=== PATIENT | female | born 1975 | race Asian ===

== ENCOUNTER 2017-10-29 05:45 | Inpatient (IN) | payer OTHER ==
[~2017-10-29] VITALS: Ht 152.4 cm; Wt 48.1 kg
[~2017-10-29 05:45] MED LIST: PREN1TAB49 PO
[2017-10-29] MEDS ORDERED: NORE0.3513 PO (06:39)
[2017-10-29] MEDS ORDERED: KETOROLAC TROMETHAMINE 30 MG VIAL IVP PRN ×2 (08:15→10:15)
[2017-10-29] MEDS ORDERED: ONDANSETRON HCL 4 MG/2 ML VIAL IVP PRN (08:15)
[2017-10-29] MEDS ORDERED: fentaNYL CITRATE/PF 100 MCG/2 ML AMP IVP PRN (08:15)
[2017-10-29] MEDS ORDERED: BISACODYL 10 MG/SUPPOSITORY RC PRN (10:15)
[2017-10-29] MEDS ORDERED: SIMETHICONE 80 MG TAB.CHEW PO PRN (10:15)
[2017-10-29] MEDS ORDERED: SENNOSIDES/DOCUSATE SODIUM 1 TAB TABLET(SENOKOT-S) PO PRN (10:15)
[2017-10-29] MEDS ORDERED: DOCUSATE SODIUM 100 MG CAPSULE PO PRN (10:15)
[2017-10-29] MEDS ORDERED: MEPERIDINE HCL/PF 50 MG/ML AMP IVP PRN (10:15)
[2017-10-29] MEDS ORDERED: fentaNYL CITRATE/PF 100 MCG/2 ML AMP ONE ×2 (10:30→10:38)
[2017-10-29] MEDS ORDERED: DEXAMETHASONE SOD PHOSPHATE 4 MG/ML VIAL ONE (10:30)
[2017-10-29] MEDS ORDERED: ROCURONIUM BROMIDE 10 MG/ML (ZEMURON) ONE (10:30)
[2017-10-29] MEDS ORDERED: LR 1,000 ML IV.SOLN IV ONE (10:30)
[2017-10-29] MEDS ORDERED: KETOROLAC TROMETHAMINE 30 MG VIAL ONE ×2 (10:30→10:54)
[2017-10-29] MEDS ORDERED: PROPOFOL 200MG/ 20ML VIAL (DIPRIVAN) IV ONE (10:30)
[2017-10-29] MEDS ORDERED: ONDANSETRON HCL 4 MG/2 ML VIAL ONE ×2 (10:30→11:07)
[2017-10-29] MEDS ORDERED: WATER FOR IRRIGATION,STERILE 1,000 ML IRRIG.SOLN IR ONE (10:30)
[2017-10-29] MEDS ORDERED: MIDAZOLAM HCL 5 MG/ML VIAL (VERSED) IV ONE (10:30)
[2017-10-29] MEDS: fentaNYL CITRATE/PF 100 MCG/2 ML AMP IVP PRN ×2 (10:30→10:55)
[2017-10-29] MEDS ORDERED: SEVOFLURANE 15 MIN GAS INH ONE (10:30)
[2017-10-29 11:24] VITALS: BP_SYST 125
[2017-10-29] MEDS: OXYCODONE/ACETAMINOPHEN 5-325 TABLET PO PRN ×2 (12:17→23:28)
[2017-10-29 15:32] VITALS: BP_SYST 125
[2017-10-29 16:14] VITALS: BP_SYST 111
[2017-10-29] MEDS: ONDANSETRON HCL 4 MG/2 ML VIAL IVP PRN (17:30)
[2017-10-29] MEDS: LR 1,000 ML IV SCH ×2 (17:41→23:27)
[2017-10-29] MEDS: TEMAZEPAM 15 MG CAPSULE PO SCH (23:28)
[2017-10-30 00:40] VITALS: BP_SYST 112
[2017-10-30] MEDS: IBUPROFEN 600 MG TABLET PO SCH ×4 (05:55→23:00)
[2017-10-30] MEDS ORDERED: OXYCODONE/ACETAMINOPHEN 5-325 TABLET PO PRN (06:00)
[2017-10-30 06:10] LABS: BASOPHILS % (AUTO) 0.3 % (0.0-2.0); EOSINOPHILS % (AUTO) 0.2 % (0.0-4.0); HEMATOCRIT 29.6 % (36-48); HEMOGLOBIN 9.5 g/dL (12.0-16.0); LYMPHOCYTES % (AUTO) 15.3 % (20.5-51.5); MEAN CORPUSCULAR HEMOGLOBIN 27 pg (27-31); MEAN CORPUSCULAR HGB CONC 32 % (32-36); MEAN CORPUSCULAR VOLUME 82 fL (79.0-98.0); MONOCYTES # (AUTO) 0.7 K/uL (0.0-1.0); MONOCYTES % (AUTO) 10.6 % (1.7-9.3); NEUTROPHILS # (AUTO) 4.9 K/uL (1.8-7.7); NEUTROPHILS % (AUTO) 73.6 % (40.0-70.0); PLATELET COUNT (AUTO) 238 K/uL (130-430); RED BLOOD CELL COUNT(AUTO) 3.61 MIL/uL (4.2-6.2); RED CELL DISTRIBUTION WIDTH 17.2 % (9.0-15.0); WHITE BLOOD COUNT (AUTO) 6.6 K/uL (4.8-10.8)
[2017-10-30] MEDS: OXYCODONE/ACETAMINOPHEN 5-325 TABLET PO PRN (07:44)
[2017-10-30] MEDS: LR 1,000 ML IV SCH ×3 (07:44→17:35)
[2017-10-30 08:06] VITALS: BP_SYST 111
[2017-10-30] MEDS: ONDANSETRON HCL 4 MG/2 ML VIAL IVP PRN (10:02)
[2017-10-30 12:40] VITALS: BP_SYST 127
[2017-10-30 16:35] VITALS: BP_SYST 139
[2017-10-30] MEDS: TEMAZEPAM 15 MG CAPSULE PO SCH (23:00)
[2017-10-31] VITALS: BP_SYST 121
[2017-10-31] MEDS: LR 1,000 ML IV SCH (05:59)
[2017-10-31] MEDS: IBUPROFEN 600 MG TABLET PO SCH (06:07)
[2017-10-31 08:21] VITALS: BP_SYST 122
[2017-10-31 10:06] VITALS: BP_SYST 137
== END 2017-10-31 11:15 | disposition home or self-care (01) | DRG 743 ==
LOC: SMU 05:45
PROVIDERS: ADMIT Obstetrics & Gynecology; ATTEND Obstetrics & Gynecology
PROC: 0UT70ZZ Resection of Bilateral Fallopian Tubes, Open Approach (ICD-10-PCS; 2017-10-29)
PROC: 0UT90ZZ Resection of Uterus, Open Approach (ICD-10-PCS; principal; 2017-10-29 07:30)
DX: D25.9 Leiomyoma of uterus, unspecified (principal); Z82.49 Family history of ischemic heart disease and other diseases of the circulatory system; Z98.891 History of uterine scar from previous surgery; F32.9 Major depressive disorder, single episode, unspecified
CPT/HCPCS: 36415; 85025; 86886; 86900; 86901; 87081; 88307; 94010; 94760; J1100; J1885; J2175; J2250; J2405; J2704; J3010; J7120

== ENCOUNTER 2020-11-13 | Emergency (ER) | payer OTHER ==
[~2020-11-13] VITALS: Ht 152.4 cm; Wt 46.3 kg
[2020-11-13 00:45] VITALS: BP_SYST 113
--- NOTE | 2020-11-13 00:50 | NUR ---
ER at bedside examining patient.
--- NOTE | 2020-11-13 01:00 | NUR ---
Patient wheeled to bed 7 for evalaution
--- NOTE | 2020-11-13 01:01 | NUR ---
Came in ER ambulatory from home this 45 year old female, AAOX4, breathing spontaneously at room air, not in distress noted. With chief complaints of right lower quadrant abdominal pain 10/10 today, no known medical/no surgical history. vital signs taken stable
--- NOTE | 2020-11-13 01:10 | NUR ---
Seen and examined by DR. Joshua
[2020-11-13] MEDS ORDERED: ONDANSETRON HCL 4 MG/2 ML VIAL IVP ONE (01:15)
[2020-11-13] MEDS ORDERED: NACL 0.9% 1,000 ML IV ONE ×2 (01:15)
[2020-11-13] MEDS ORDERED: MORPHINE 4 MG INJ. 4 MG/ML VIAL IM ONE (01:15)
--- NOTE | 2020-11-13 01:30 | NUR ---
# 20 gauge angiocath placed to right antecubital. Use of asceptic technique. Opsite placed over site. Blood return noted. Flushed with 10 cc of normal saline. No evidence of infiltration noted. Patient tolerated well.
[2020-11-13 01:39] LABS: BASOPHILS # (AUTO) 0.1 K/uL (0.0-0.2); BASOPHILS % (AUTO) 2.5 % (0.0-2.0); EOSINOPHILS # (AUTO) 0.2 K/uL (0.0-0.4); EOSINOPHILS % (AUTO) 3.6 % (0.0-4.0); HEMATOCRIT 43.2 % (36-48); HEMOGLOBIN 14.3 g/dL (12.0-16.0); LYMPHOCYTES # (AUTO) 0.9 K/uL (1.0-5.5); LYMPHOCYTES % (AUTO) 21.5 % (20.5-51.5); MEAN CORPUSCULAR HEMOGLOBIN 32 pg (27-31); MEAN CORPUSCULAR HGB CONC 33 % (32-36); MEAN CORPUSCULAR VOLUME 96 fL (79.0-98.0); MONOCYTES # (AUTO) 0.3 K/uL (0.0-1.0); MONOCYTES % (AUTO) 7.1 % (1.7-9.3); NEUTROPHILS # (AUTO) 2.9 K/uL (1.8-7.7); NEUTROPHILS % (AUTO) 65.3 % (40.0-70.0); PLATELET COUNT (AUTO) 244 K/uL (130-430); RED BLOOD CELL COUNT(AUTO) 4.51 MIL/uL (4.2-6.2); RED CELL DISTRIBUTION WIDTH 12.8 % (9.0-15.0); WHITE BLOOD COUNT (AUTO) 4.4 K/uL (4.8-10.8)
[2020-11-13 01:46] LABS: BILIRUBIN,URINE NEGATIVE (NEGATIVE); BLOOD, URINE NEGATIVE (NEGATIVE); CLARITY/URINE CLEAR (CLEAR); COLOR,URINE YELLOW (YELLOW); GLUCOSE,URINE NEGATIVE (NEGATIVE); KETONES,URINE NEGATIVE (NEGATIVE); LEUKOCYTE ESTERASE ,URINE NEGATIVE (NEGATIVE); NITRITE, URINE NEGATIVE (NEGATIVE); PH,URINE 6.5 (5.0-8.0); PROTEIN URINE NEGATIVE (NEGATIVE); UROBILINOGEN,URINE 0.2 (0.2-1.0)
[2020-11-13 01:49] LABS: CREATININE 0.84 mg/dL (0.55-1.30); POTASSIUM 3.9 mmol/L (3.5-5.1)
[2020-11-13 01:55] LABS: TOTAL BILIRUBIN 0.5 mg/dL (0.0-1.0)
--- NOTE | 2020-11-13 01:57 | NUR ---
For CT Abdomen/pelvis Abdomen with contrast, consent obtained and verblaized understanding
[2020-11-13] MEDS ORDERED: MORPHINE 4 MG INJ. 4 MG/ML VIAL IVP ONE (03:30)
[2020-11-13] MEDS ORDERED: MORPHINE 4 MG INJ. 4 MG/ML VIAL ONE (03:34)
--- NOTE | 2020-11-13 03:37 | NUR ---
Still with pain 02/18, Dr. Joshua made aware, ordered to give Morphine 6mg IV once and carried out
--- NOTE | 2020-11-13 04:05 | NUR ---
Re-assesed by DR. CLAYTON, CT sCAN ABDOMEN negative
[2020-11-13] MEDS ORDERED: ONDA-8 TL (04:14)
[2020-11-13] MEDS ORDERED: MAGNESIUM CITRATE 300 ML ORAL SOLUTION PO ONE (04:15)
--- NOTE | 2020-11-13 04:17 | NUR ---
Medications given as ordered for Constipation
[2020-11-13 04:29] VITALS: BP_SYST 116
--- NOTE | 2020-11-13 04:29 | NUR ---
Patient given written and verbal discharge instructions and verbalizes understanding. ER MD discussed with patient the results and treatment provided. Patient in stable condition. ID arm band removed. IV catheter removed intact and dressing applied, no active bleeding. Rx of Zofran given. Patient educated on pain management and to follow up with PMD. Pain Scale 3/10. Opportunity for questions provided and answered. Medication side effect fact sheet provided.
[2020-11-13] MEDS ORDERED: ONDANSETRON 4 MG ODT TAB PO ONE (04:45)
[2020-11-13] MEDS ORDERED: ONDANSETRON 4 MG ODT TAB ONE (04:45)
== END 2020-11-13 04:28 | disposition home or self-care (01) ==
LOC: SED
DX: K59.00 Constipation, unspecified (principal); Z79.899 Other long term (current) drug therapy
CPT/HCPCS: 36415; 74177; 76376; 80053; 81003; 83690; 85025; 96361; 96372; 96374; 96375; 99285; J2270; J2405; J7030; Q0162; Q9967

== ENCOUNTER 2020-11-25 00:46 | Observation (INO) | payer OTHER, SELFPAY ==
[~2020-11-25] VITALS: Ht 152.4 cm; Wt 46.3 kg
[~2020-11-25 00:46] MED LIST changes: +ONDA-8 TL
[2020-11-25 01:36] VITALS: BP_SYST 117
--- NOTE | 2020-11-25 01:40 | NUR ---
Patient triaged and placed in waiting room. VSS and patient appears in no acute distress at this time. Accompanied by family, awaiting available bed, and MD notified of need for MSE.
--- NOTE | 2020-11-25 02:02 | NUR ---
Patient wheele to bed 5 with family, for evaluation
--- NOTE | 2020-11-25 02:10 | NUR ---
Pt walked in from home c/o generalized abdominal pain since yesterday. Pt was seen before and was dx with constipation. Pt reports taking MOM had 1 BM and states the pain increased. +vomiting, no SOB, no CP.
[2020-11-25 02:19] LABS: CALCIUM 8.8 mg/dL (8.4-11.0); CREATININE 0.86 mg/dL (0.55-1.30); POTASSIUM 3.6 mmol/L (3.5-5.1)
[2020-11-25 02:20] LABS: BASOPHILS # (AUTO) 0.1 K/uL (0.0-0.2); BASOPHILS % (AUTO) 0.8 % (0.0-2.0); EOSINOPHILS # (AUTO) 0.1 K/uL (0.0-0.4); EOSINOPHILS % (AUTO) 0.7 % (0.0-4.0); HEMATOCRIT 42.9 % (36-48); HEMOGLOBIN 14.2 g/dL (12.0-16.0); LYMPHOCYTES # (AUTO) 0.5 K/uL (1.0-5.5); LYMPHOCYTES % (AUTO) 4.6 % (20.5-51.5); MEAN CORPUSCULAR HEMOGLOBIN 32 pg (27-31); MEAN CORPUSCULAR HGB CONC 33 % (32-36); MEAN CORPUSCULAR VOLUME 95 fL (79.0-98.0); MONOCYTES # (AUTO) 0.6 K/uL (0.0-1.0); MONOCYTES % (AUTO) 5.6 % (1.7-9.3); NEUTROPHILS # (AUTO) 9.9 K/uL (1.8-7.7); NEUTROPHILS % (AUTO) 88.3 % (40.0-70.0); PLATELET COUNT (AUTO) 251 K/uL (130-430); RED CELL DISTRIBUTION WIDTH 13.1 % (9.0-15.0); WHITE BLOOD COUNT (AUTO) 11.2 K/uL (4.8-10.8)
--- NOTE | 2020-11-25 02:20 | NUR ---
Dr Khan at bedside for MSE
[2020-11-25 02:25] LABS: ALBUMIN 3.9 g/dL (3.4-4.8); TOTAL BILIRUBIN 0.8 mg/dL (0.0-1.0)
[2020-11-25 02:26] LABS: BILIRUBIN,URINE NEGATIVE (NEGATIVE); BLOOD, URINE NEGATIVE (NEGATIVE); CLARITY/URINE CLEAR (CLEAR); COLOR,URINE YELLOW (YELLOW); GLUCOSE,URINE NEGATIVE (NEGATIVE); KETONES,URINE TRACE (NEGATIVE); LEUKOCYTE ESTERASE ,URINE NEGATIVE (NEGATIVE); NITRITE, URINE NEGATIVE (NEGATIVE); PH,URINE 8.5 (5.0-8.0); PROTEIN URINE NEGATIVE (NEGATIVE); UROBILINOGEN,URINE 0.2 (0.2-1.0)
[2020-11-25] MEDS ORDERED: HYDROcodone/ACETAMIN 7.5-325 MG TAB PO ONE (02:30)
--- NOTE | 2020-11-25 03:30 | NUR ---
# 20 gauge angiocath placed to RAC. Use of asceptic technique. Opsite placed over site. Blood return noted. Flushed with 10 cc of normal saline. No evidence of infiltration noted. Patient tolerated well.
--- NOTE | 2020-11-25 03:47 | NUR ---
PT SHAY to CT with tech
--- NOTE | 2020-11-25 04:00 | NUR ---
Pt back from CT
--- NOTE | 2020-11-25 05:45 | NUR ---
Patient resting quietly. No acute distress noted.
--- NOTE | 2020-11-25 06:20 | NUR ---
Patient will be admitted to care of DR. NIEVES. Admitted to MED SURG unit. Belongings list completed. Complete and up to date summary report printed. SBAR report to be given at bedside with opportunity for questions.
--- NOTE | 2020-11-25 06:31 | NUR ---
Patient's code status is FULL CODE paperwork completed and placed in chart.
--- NOTE | 2020-11-25 06:34 | NUR ---
Medication reconciliation completed with information provided by PATIENT. Any prior medication reconciliation on file was reviewed and corrected. PT REPORTS NO MEDICATIONS
--- NOTE | 2020-11-25 07:29 | NUR ---
REPORT GIVEN TO CHACHA TRUONG
--- NOTE | 2020-11-25 08:01 | NUR ---
PT REMAINS STABLE, RESTING IN BED. RN WILL TRANSFER TO THE MS FLOOR SOON. PT REMAINS NPO.
[2020-11-25] MEDS ORDERED: NALOXONE HCL 0.4 MG/ML AMP (NARCAN) IVP PRN (08:15)
[2020-11-25] MEDS ORDERED: MORPHINE 4 MG INJ. 4 MG/ML VIAL IVP PRN (08:15)
[2020-11-25] MEDS ORDERED: ALBUTEROL SULFATE 0.083% 2.5 MG/3 ML VIAL.NEB INH PRN (08:15)
[2020-11-25] MEDS ORDERED: ACETAMINOPHEN 325 MG TABLET PO PRN ×2 (08:15→08:30)
[2020-11-25] MEDS ORDERED: ONDANSETRON HCL 4 MG/2 ML VIAL IVP PRN (08:15)
[2020-11-25] MEDS ORDERED: MORPHINE 2 MG/ML INJ. SYRINGE IVP PRN (08:15)
--- NOTE | 2020-11-25 08:15 | NUR ---
PT TAKEN TO THE MS FLOOR ROOM 129A, FACE TO FACE REPORT.
--- NOTE | 2020-11-25 08:45 | NUR ---
ADMIT NOTE Received pt from ER to the floor with a diagnosis of small bowel obstruction. Admission process initiated. Denies any pain at this time. No shortness of breath on room air. Patient oriented to pain management, safety and call light-teach back done.
[2020-11-25 08:56] VITALS: BP_SYST 119
[2020-11-25 09:00] VITALS: BP_SYST 117
--- NOTE | 2020-11-25 09:01 | NUR ---
CONSULTATION PAGED REASON FOR CONSULTATION:SBO WAS CONSULT CALED?Y PERSON WHO WAS NOTIFIED:ANGELA CONSULTING PHYSICIAN:KEVIN RIVERA INDUCTION COORDINATION POWER ENGINEER SPECIALTY:SURGEON INDUCTION COORDINATION POWER ENGINEER PHONE NUMBER:[phone] REQUESTING PHYSICIAN:SHEMAR ART
--- NOTE | 2020-11-25 09:03 | NUR ---
CONSULTATION PAGED/CALLED Reason for Consultation: [] SBO Person Who was Notified: [] ANGELA Consulting Physician: [] DR MIRANDA, A Rn Disease Management Specialty: [] GEN SURGEON Ordering Physician: [] DR NOGUERA
[2020-11-25] MEDS ORDERED: GASTROGRAFIN 120 ML ONE (09:05)
[2020-11-25] MEDS: NACL 0.9% 1,000 ML IV SCH ×2 (09:18→17:12)
[2020-11-25] MEDS: PANTOPRAZOLE SODIUM 40 MG/VIAL (PROTONIX) IVP SCH (09:19)
--- NOTE | 2020-11-25 09:20 | NUR ---
IV FLUIDS IV FLUIDS STARTED, PROTONIX ADMINISTERED. EDUCATED PATIENT ON USE AND SIDE EFFECT OF PROTONIX.
[2020-11-25] MEDS: cefTRIAXone 1 GM IVPB PREMIX 50 ML IV SCH (09:46)
--- NOTE | 2020-11-25 10:15 | NUR ---
IV ADMINISTRATION END TIME (Observation Patients ONLY): IVPB of Ceftriaxone started at 09:46 and ended at 10:15 .
[2020-11-25 10:43] LABS: BASOPHILS % (AUTO) 0.3 % (0.0-2.0); EOSINOPHILS # (AUTO) 0.1 K/uL (0.0-0.4); EOSINOPHILS % (AUTO) 1.4 % (0.0-4.0); HEMATOCRIT 45.4 % (36-48); HEMOGLOBIN 15.1 g/dL (12.0-16.0); LYMPHOCYTES # (AUTO) 0.8 K/uL (1.0-5.5); LYMPHOCYTES % (AUTO) 12.4 % (20.5-51.5); MEAN CORPUSCULAR HEMOGLOBIN 32 pg (27-31); MEAN CORPUSCULAR HGB CONC 33 % (32-36); MEAN CORPUSCULAR VOLUME 95 fL (79.0-98.0); MONOCYTES # (AUTO) 0.3 K/uL (0.0-1.0); MONOCYTES % (AUTO) 5.3 % (1.7-9.3); NEUTROPHILS # (AUTO) 4.9 K/uL (1.8-7.7); NEUTROPHILS % (AUTO) 80.6 % (40.0-70.0); PLATELET COUNT (AUTO) 236 K/uL (130-430); RED BLOOD CELL COUNT(AUTO) 4.78 MIL/uL (4.2-6.2); RED CELL DISTRIBUTION WIDTH 13.4 % (9.0-15.0); WHITE BLOOD COUNT (AUTO) 6.1 K/uL (4.8-10.8)
[2020-11-25 11:01] LABS: ALANINE AMINOTRANSFERASE 29 U/L (12-78); ALBUMIN 3.9 g/dL (3.4-4.8); ANION GAP 8 (5-15); ASPARTATE AMINOTRANSFERASE 23 U/L (10-37); CALCIUM 8.8 mg/dL (8.4-11.0); CHLORIDE 107 mmol/L (98-107); CREATININE 0.73 mg/dL (0.55-1.30); GLUCOSE 82 mg/dL (70-99); POTASSIUM 3.7 mmol/L (3.5-5.1); SODIUM SERUM 143 mmol/L (136-145); TOTAL BILIRUBIN 0.8 mg/dL (0.0-1.0); UREA NITROGEN, BLOOD 7 mg/dL (8-21)
[2020-11-25 11:06] LABS: GFR AFRICAN AMERICAN 111 mL/min (>90)
[2020-11-25 12:03] VITALS: BP_SYST 118
--- NOTE | 2020-11-25 12:15 | NUR ---
ROUNDS RESTING IN BED. DENIES ABDOMINAL PAIN. SAFETY CHECKS DONE.
[2020-11-25 16:15] VITALS: BP_SYST 133
--- NOTE | 2020-11-25 17:00 | NUR ---
IV ADMINISTRATION END TIME (Observation Patients ONLY): IV infusion of normal saline started at 09:18 and ended at 17:12.
--- NOTE | 2020-11-25 19:00 | NUR ---
CLOSING NOTES RESTING IN BED. IV FLUIDS INFUSING WELL. NO SIGN OF DISTRESS. ALL NEEDS MET. KEPT ON NPO, PATIENT VERBALIZED UNDERSTANDING. FALL AND SAFETY CHECKS DONE. WILL ENDORSE TO NIGHT NURSE.
--- NOTE | 2020-11-25 19:30 | NUR ---
RECEIVED REPORT FROM DAY RN. PT LAYING IN BED AWAKE WITH RESPIRATIONS EVEN AND UNLABORED ON RA. PT CURRENTLY DENIES PAIN. RAC IV 20G PATENT AND INTACT RUNNING IVF. NO SIGNS OF INFILTRATION NOTED. FLUSHES WELL. PT AMBULATORY WITH STEADY GAIT. BED IN LOW AND LOCKED POSITION. CALL LIGHT WITHIN REACH. SAFETY PRECAUTIONS IN PLACE. WILL CONTINUE TO MONITOR.
[2020-11-25 20:00] VITALS: BP_SYST 126
[2020-11-26] VITALS: BP_SYST 115
[2020-11-26] MEDS: NACL 0.9% 1,000 ML IV SCH ×2 (00:47→08:44)
--- NOTE | 2020-11-26 00:47 | NUR ---
IV ADMINISTRATION END TIME (Observation Patients ONLY): IV infusion of started at nsaline 17:12 on 11/25 and ended at 00:47 .
--- NOTE | 2020-11-26 02:42 | NUR ---
ROUNDS PT SLEEPING IN BED. NO SIGNS OF DISTRESS NOTED. IVF RUNNING AT 125ML/HR. BED IN LOW AND LOCKED POSITION. SAFETY PRECAUTIONS IN PLACE. WILL CONTINUE TO MONITOR.
--- NOTE | 2020-11-26 06:21 | NUR ---
CLOSING NOTES PATIENT IN BED WITH RESPIRATIONS EVEN AND UNLABORED ON RA. NO SIGNS OF DISTRESS NOTED. RIGHT AC IV RUNNING IVF. NO SIGNS OF INFILTRATION NOTED. PT CURRENTLY DENIES ABD PAIN. SKIN INTACT. BED IN LOW AND LOCKED POSITION. SAFETY PRECAUTIONS IN PLACE. CALL LIGHT WITHIN REACH. WILL ENDORSE TO DAY RN.
[2020-11-26 06:44] LABS: BASOPHILS % (AUTO) 0.8 % (0.0-2.0); EOSINOPHILS # (AUTO) 0.1 K/uL (0.0-0.4); HEMATOCRIT 38.6 % (36-48); HEMOGLOBIN 12.9 g/dL (12.0-16.0); LYMPHOCYTES # (AUTO) 0.7 K/uL (1.0-5.5); LYMPHOCYTES % (AUTO) 17.4 % (20.5-51.5); MEAN CORPUSCULAR HEMOGLOBIN 32 pg (27-31); MEAN CORPUSCULAR HGB CONC 33 % (32-36); MEAN CORPUSCULAR VOLUME 96 fL (79.0-98.0); MONOCYTES # (AUTO) 0.3 K/uL (0.0-1.0); NEUTROPHILS # (AUTO) 2.9 K/uL (1.8-7.7); NEUTROPHILS % (AUTO) 71.8 % (40.0-70.0); PLATELET COUNT (AUTO) 208 K/uL (130-430); RED BLOOD CELL COUNT(AUTO) 4.01 MIL/uL (4.2-6.2); RED CELL DISTRIBUTION WIDTH 13.1 % (9.0-15.0)
[2020-11-26 07:03] LABS: ALBUMIN 3.1 g/dL (3.4-4.8); CALCIUM 7.7 mg/dL (8.4-11.0); CREATININE 0.61 mg/dL (0.55-1.30); POTASSIUM 3.5 mmol/L (3.5-5.1); TOTAL BILIRUBIN 0.8 mg/dL (0.0-1.0)
--- NOTE | 2020-11-26 07:58 | NUR ---
OPENING NOTES: PATIENT RESTING IN BED. BREATHING EVEN AND NON LABORED TO ROOM AIR. IV INFUSING WELL. FALL AND SAFETY PRECAUTION REINFORCED. CALL LIGHT WITHIN REACH.
[2020-11-26 08:03] VITALS: BP_SYST 103
[2020-11-26] MEDS: PANTOPRAZOLE SODIUM 40 MG/VIAL (PROTONIX) IVP SCH (08:43)
[2020-11-26] MEDS: cefTRIAXone 1 GM IVPB PREMIX 50 ML IV SCH (08:44)
--- NOTE | 2020-11-26 08:44 | NUR ---
IV ADMINISTRATION END TIME (Observation Patients ONLY) IV infusion of nsaline started at 00:47 and ended at 08:44.
--- NOTE | 2020-11-26 09:15 | NUR ---
IV ADMINISTRATION END TIME (Observation Patients ONLY): IVPB Ceftriaxone started at 08:44 and ended at 09:15.
[2020-11-26 12:14] VITALS: BP_SYST 103
--- NOTE | 2020-11-26 14:30 | NUR ---
RN notes: PATIENT TOLERATED HER LUNCH. SOFT AND NON DISTENDED ABDOMEN. NO ABDOMINAL PAIN NOTED. STABLE CONDITION.
[2020-11-26 14:44] VITALS: BP_SYST 103
--- NOTE | 2020-11-26 15:00 | NUR ---
IV ADMINISTRATION END TIME (Observation Patients ONLY): IV infusion of nsaline started at 08:44 and ended at 15:30 prior to pt's discharge.
--- NOTE | 2020-11-26 15:45 | NUR ---
D/C Patient Patient given packet and D/C instructions. Exit Care provided. Patient verbalized understanding. MD discussed with patient the results and treatment provided. Ambulatory with steady gait for discharge to home. Patient in stable condition, ID band removed. IV catheter removed, intact and dressing applied, no active bleeding. All belongings sent with patient.
[2020-11-26 16:13] VITALS: BP_SYST 102
== END 2020-11-26 15:45 | disposition home or self-care (01) ==
LOC: SED 00:46 → SMU 06:16 → INTOOBSV 06:16 → SMU 06:37
PROVIDERS: ADMIT Internal Medicine Hospice and Palliative Medicine; ATTEND Internal Medicine Hospice and Palliative Medicine
DX: K52.9 Noninfective gastroenteritis and colitis, unspecified (principal); Z20.822 Contact with and (suspected) exposure to COVID-19; K59.00 Constipation, unspecified; K56.609 Unspecified intestinal obstruction, unspecified as to partial versus complete obstruction; K66.0 Peritoneal adhesions (postprocedural) (postinfection); Z90.710 Acquired absence of both cervix and uterus; Z98.891 History of uterine scar from previous surgery; Z79.899 Other long term (current) drug therapy
CPT/HCPCS: 36415 ×2; 74177; 74250; 76376; 80053 ×2; 81003; 83690; 84484; 85025 ×2; 87426; 96361 ×2; 96365; 96366; 96375; 96376; 99285; C9113 ×2; G0378; J0696 ×2; J2270; Q9963; Q9967